=== PATIENT | female | born 1985 | race Caucasian/White ===

== ENCOUNTER 2017-01-19 05:31 | Day surgery (SDC) | payer OTHER ==
--- NOTE | 2017-01-13 14:50 | GHP ---
[f rep st] HISTORY AND PHYSICAL HISTORY OF PRESENT ILLNESS: Patient is a 2, para 0, 0, A1, living 0, 31-year-old who came in to [facility] at 8 weeks 4 days on 01/12/2017 for her new OB, had previously had a viability and dating on 2016 that showed a positive low heart rate of 117, size less than dates by 3 days. Was again ultrasound on January 12, where there was no visible heart rate and size less than dates by 9 days. The yolk sac appeared collapsed on . Embryo was seen, number was 1, gestational sac was seen, but as previously stated, no heart rate. Blood type was done, patient is O positive, so RhoGAM was not given. Patient has decided to proceed with a D and C as plan of care. PAST MEDICAL HISTORY: History of a UTI x1 in the past year, history of 1-3 per year. Varicella is positive. Tdap was received in 2014. The patient has been rubella immunized. Previous history of slight constipation. PAST SURGICAL HISTORY: Fractured right arm at the age of 18 secondary to fall, had multiple screws placed because of that. GYNECOLOGICAL HISTORY: History of OCP use. 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 Abnormal Pap 4-5 years ago with a colpo, re-Pap was negative. SOCIAL HISTORY: Patient is to [place]. Denies tobacco use. Denies drug use. MEDICATIONS: Patient has been taking vitamins with DHA. ALLERGIES: Patient is not allergic to any medications. PAST HISTORY: Spontaneous SAB, no D and C was necessary, in 2014. REVIEW OF SYSTEMS: Time 9 is benign. FAMILY HISTORY: Noncontributory. PHYSICAL ASSESSMENT: Patient was awake, alert, oriented x3. Lungs are clear bilaterally. Bowel sounds are positive in all 4 quadrants. DTRs are 1+ bilaterally with no clonus. Homans sign was negative bilaterally. In the office, alternatives for patient plan of care were discussed. Risks, benefits and alternatives were discussed at length. The patient decided on a D and C, discussed risks, benefits and alternatives of a D and C, plan was decided that she would schedule and proceed with a D and C for Tuesday, January 19. PLAN OF CARE: 1. positive. 2. Proceed with D and C for a missed AB. The patient verbalized understanding of the risks, the benefits, and the alternatives. /[id number]/MODL MTDD
[2017-01-19] MEDS ORDERED: LR 1,000 ML IV ONE (06:15)
[2017-01-19] MEDS ORDERED: DOXYCYCLINE HYCLATE 100 MG CAP/TAB PO ONE ×2 (06:15→09:34)
[2017-01-19] MEDS ORDERED: MIDAZOLAM 2 MG/2 ML VIAL ONE (07:17)
--- NOTE | 2017-01-19 07:27 | PDANEPAE ---
ANE History of Present Illness Missed Ab. ANE Past Medical History Past Medical History: General anesthesia for arm surgery. - Cardiovascular History Hx Hypertension: No Hx Arrhythmias: No Hx Chest Pain: No Hx Coronary Artery / Peripheral Vascular Disease: No Hx CHF / Valvular Disease: No Hx Palpitations: No - Pulmonary History Hx COPD: No Hx Asthma/Reactive Airway Disease: No Hx Recent Upper Respiratory Infection: No Hx Oxygen in Use at Home: No Hx Sleep Apnea: No Sleep Apnea Screening Result - Last Documented: Negative - Endocrine History Hx Diabetes: No Hypothyroid: No Hyperthyroid: No Obesity: no - Chronic Pain History Chronic Pain: No - Surgical History Prior Surgeries: General anesthesia for ORIF right arm. ANE Review of Systems Review of systems is: negative Review of Systems: - Exercise capacity Exercise capacity: >=4 METS ANE Patient History - Allergies Allergies/Adverse Reactions: No Known Allergies Allergy (Unverified 01/19/17 06:05) - NPO status NPO Status: no food or drink >8 hours NPO Since - Liquids (Date): 01/18/17 NPO Since - Liquids (Time): 20:30 NPO Since - Solids (Date): 01/18/17 NPO Since - Solids (Time): 20:30 - Anes Hx Anes Hx: no prior problems - Smoking Hx Smoking Status: Never smoked - Alcohol Use Alcohol Use: Rarely - Family Anes Hx Family Anes Hx: neg - N/A ANE Labs/Vital Signs - Vital Signs Blood Pressure: 105/70 Heart Rate: 76 Respiratory Rate: 16 O2 Sat (%): 97 Height: 160.02 cm Weight: 65.771 kg ANE Physical Exam - Airway Neck exam: FROM Mallampati Score: Class 1 Mouth exam: normal dental/mouth exam - Pulmonary Pulmonary: no respiratory distress - Cardiovascular Cardiovascular: regular rate and rhythym - ASA Status ASA Status: I ANE Anesthesia Plan Anesthesia Plan: GA with mask
[2017-01-19] MEDS ORDERED: fentaNYL 100 MCG/2 ML INJ ONE (07:42)
[2017-01-19] MEDS ORDERED: PROPOFOL/EMULSION 500 MG/50 ML BOTTLE IV ONE (07:42)
[2017-01-19] MEDS ORDERED: LIDOCAINE 2% 5 ML SDV ONE (07:45)
[2017-01-19] MEDS ORDERED: ONDANSETRON 4 MG/2 ML VIAL ONE (07:45)
[2017-01-19] MEDS ORDERED: DEXAMETHASONE 4 MG/ML VIAL ONE ×2 (07:45)
--- NOTE | 2017-01-19 08:24 | PDHPUP ---
History & Physical Update H&P update statement: This history and physical update is based on an assessment of the patient which was completed after admission or registration (within 24 hours), but prior to the surgery/procedure.
[2017-01-19] MEDS ORDERED: KETOROLAC 30 MG/1 ML SDV ONE (09:02)
[2017-01-19] MEDS ORDERED: fentaNYL 100 MCG/2 ML INJ IVP PRN (09:27)
[2017-01-19] MEDS ORDERED: HYDROCODONE/APAP 5/325 TAB PO PRN (09:27)
[2017-01-19] MEDS ORDERED: NALOXONE HCL 0.4 MG/ML INJ IVP PRN (09:27)
--- NOTE | 2017-01-19 09:28 | POSTANESTH ---
Post Anesthetic Evaluation Cardiovascular Status: Normal, Stable, Similar to Pre-Op Cond Respiratory Status: Normal, Stable, Similar to Pre-op Cond. Level of Consciousness/Mental Status: Can Participate in Eval, Mildly Sleepy, Arousable Pain Control: Adequate, Prn Tx Ordered Nausea/Vomiting Control: Adequate, Prn Tx Ordered Complications Possibly Related to Anesthesia: None Noted
--- NOTE | 2017-01-19 09:40 | OBPROC ---
OBG Outpatient Procedure Note - History : 2 Term: 0 : 0 Para: 0 Spontaneous Abortions: 1 Induced Abortions: 0 Abortions: 0 Ectopics: 0 Livin - Procedure Info Date of Operation: 01/19/17 Pre-op Diagnoses: MAB at 8 wks Post-op Diagnoses: same Indication: U/S with 8 wk pole, no FCA, no bld or cramps Procedure: Dilation & Curettage Performing Provider: Naye Guallpa Anesthesiologist: Juan Galvan Specimen(s)/Path: Products of Conception Procedural EBL: < 50 ml Procedural Note: procedure note dictated ICD10 Worksheet Patient Problems: Problems Problem Status Onset S/P dilatation and curettage Acute
[2017-01-19 10:30] VITALS: TEMP 98.1
[2017-01-19 10:38] VITALS: BP 103/61; RESP 18; O2SAT 95
--- NOTE | 2017-01-19 12:39 | GOP ---
[f rep st] OPERATIVE REPORT DATE OF OPERATION: 01/19/2017 SURGEON: Naye Guallpa MD ANESTHESIA: IV and mask general anesthesia. ANESTHESIOLOGIST: Conrad Galvan MD PREOPERATIVE DIAGNOSIS: Missed at 8 weeks. POSTOPERATIVE DIAGNOSIS: Missed at 8 weeks. PROCEDURE PERFORMED: Dilatation and curettage. FINDINGS: ESTIMATED BLOOD LOSS: Less than 50 cc. INDICATIONS: The patient is a 31-year-old G2, A1, who is at 8 weeks and 4 days by her last menstrual period. The patient had an initial visit on January 05, at which time she had size equals dates on pole size. However, there was a slightly low heart rate of 117 beats per minute. She had a followup ultrasound on 01/12 at which time there was a missed AB with now size less than dates by 9 days. The patient was given options as to awaiting a spontaneous AB, proceeding with Cytotec to help induce an AB versus proceeding with D and C. The patient desired to proceed with definitive managem ent of a D and C, as her last spontaneous miscarriage was very traumatic and painful. The patient wa s counseled as to the risks and benefits and the consent form signed. Maternal blood type is O posit kimi. Patient was given preoperative antibiotics of doxycycline. Patient urinated prior to coming to the operating room and has on SCDs for DVT prophylaxis. DESCRIPTION OF PROCEDURE: The patient was taken to the operating room, where following satisfactory IV and mask general anesthesia, the patient was placed in dorsal lithotomy position typical for vagin al procedures. The patient's perineum and vagina were prepped and the patient draped in usual steril e manner. A sterile speculum was placed within the vagina and an atraumatic grasper was placed on th e anterior lip of the cervix. Gentle traction was applied on the tenaculum to straighten the uterus. The cervix was slowly dilated with Hegar dilators up to 8.5. A #8 tip on the suction machine was u sed to perform the suction curettage. Several passes with the suction were performed and moderate am ount of tissue obtained. Following the suction portion, a sharp curetting was performed carefully on the anterior wall. There was minimal additional tissue obtained. There was good uterine cry felt t hroughout the cavity after the sharp curetting. One additional pass with the suction tip was used to empty blood from the uterus and ensure no continued tissue. There was minimal bleeding from the edi demetris. The atraumatic grasper was taken off the anterior lip of the cervix and there was no bleeding. Ultrasound was performed after the procedure and there was no residual gestational sac in the endome trial cavity. The patient tolerated the procedure well. The patient was cleaned off and taken out o f the operating room in stable condition. The patient was awoken normally. There were no complicati ons. IV FLUIDS: 1000 cc. /[id number]/MODL
[2017-01-19 12:41] VITALS: PULSE 73
== END 2017-01-19 12:48 | disposition home or self-care (01) ==
LOC: FOBOP 05:31
PROVIDERS: ATTEND Obstetrics & Gynecology
PROC: 10D17ZZ Extraction of Products of Conception, Retained, Via Natural or Artificial Opening (ICD-10-PCS; principal; 2017-01-19)
DX: O02.1 Missed abortion (principal); Z3A.08 8 weeks gestation of pregnancy
CPT/HCPCS: J1100; J1885; J2250; J2405; J2704; J3010

== ENCOUNTER → 2018-05-01 | Outpatient (CLI) | payer OTHER | LOC: FIMAGING 09:29 | PROVIDERS: ATTEND Obstetrics & Gynecology | DX: O09.523 Supervision of elderly multigravida, third trimester (principal); Z3A.30 30 weeks gestation of pregnancy ==

== ENCOUNTER → 2018-05-15 | Outpatient (CLI) | payer OTHER | LOC: FIMAGING 12:16 | PROVIDERS: ATTEND Obstetrics & Gynecology | DX: O36.5930 Maternal care for other known or suspected poor fetal growth, third trimester, not applicable or unspecified (principal); Z3A.32 32 weeks gestation of pregnancy ==

== ENCOUNTER → 2018-05-29 | Outpatient (CLI) | payer OTHER | LOC: FIMAGING 08:16 | PROVIDERS: ATTEND Obstetrics & Gynecology | DX: O36.5930 Maternal care for other known or suspected poor fetal growth, third trimester, not applicable or unspecified (principal); Z3A.30 30 weeks gestation of pregnancy ==

== ENCOUNTER → 2018-06-20 | Outpatient (CLI) | payer OTHER | LOC: FIMAGING 14:06 | PROVIDERS: ATTEND Obstetrics & Gynecology | DX: O35.8XX0 Maternal care for other (suspected) fetal abnormality and damage, not applicable or unspecified (principal); Z3A.37 37 weeks gestation of pregnancy ==

== ENCOUNTER 2018-07-09 05:31 | Inpatient (IN) | payer OTHER ==
[2018-07-09] MEDS ORDERED: IBUPROFEN 600 MG TAB PO PRN (06:31)
[2018-07-09] MEDS ORDERED: LR 1,000 ML IV PRN (06:31)
[2018-07-09] MEDS ORDERED: EPSOM SALT 454 GM TP PRN (06:31)
[2018-07-09] MEDS ORDERED: MISOPROSTOL 200 MCG TAB PO PRN (06:31)
[2018-07-09] MEDS ORDERED: OLIVE OIL 118 ML BTL MISC PRN (06:31)
[2018-07-09] MEDS ORDERED: LIDOCAINE 1% 300 MG/30 ML SDV SC PRN (06:31)
[2018-07-09] MEDS ORDERED: AMMONIA AROMATIC 1 EACH AMP IH PRN (06:31)
[2018-07-09] MEDS ORDERED: OXYTOCIN/RINGERS LACTATE 1,000 ML IV PRN (06:31)
[2018-07-09] MEDS ORDERED: TERBUTALINE SULFATE 1 MG/ML VIAL IV PRN (06:31)
--- NOTE | 2018-07-09 07:01 | PDGENHP ---
History and Physical - Chief Complaint SROM, early labor - History of Present Illness 32 yo at 40w0d by ANGELES of 07/09/18 presented this AM with SROM at 0400. Amnisure positive here on admission. GBS negative. Had been having some mild cramping last night, and has maybe noticed a slight change in ctx's since her water breaking this AM. Was 1-2cm in clinic last week. This complicated by IUGR that was diagnosed at 20 wk anatomy scan and then followed by MFM w serial growths and dopplers. Actually ended up "resolving" such that their most recent visit was at 36w4d and EFW had recovered to 13% with normal fluid and dopplers. They felt like she was safe to stop US screening, but still delivery by ANGELES due to suspected underlying placental insufficiency. She also has h/o LEEP for CIN3 in 2018 - normal CLUS at 16wks. H/o frequent UTI 's. Had complete previa that resolved. labs: O pos Antibody neg RPR NR Hep B neg Rubella immune HIV neg Toxo nonimmune Pap 09/2017 (after LEEP) - NIL VZV immune GBS NEG History Information - Allergies/Home Medication List Allergies/Adverse Reactions: No Known Allergies Allergy (Unverified 01/19/17 06:05) I have personally reviewed and updated: family history, medical history, social history, surgical history Past Medical History: Cervical dysplasia, frequent UTI - Surgical History Additional surgical history: D&C x 2, R arm fx and fix, wisdom teeth - Social History Smoking Status: Never smoked Review of Systems Review of Systems: ROS: 10pt was reviewed & negative except for what was stated in HPI & below Physical Exam Physical Exam: Constitutional: no apparent distress, appears nourished, not in pain Eyes: PERRL Gastrointestinal: soft, non-tender abdomen, other (Longitudinal lie, vertex by SCE per RN) Skin: warm, normal color Lab Data & Imaging Review 07/09/18 06:45 Membrane Rupture POSITIVE (NEGATIVE) H 07/09/18 05:30 Imaging Review: FHR 130s, mod jerry, accels present, no decels. [place]: Irreg Assessment & Plan Assessment: 32 yo at 40w0d presents with SROM clear fluid, not in labor yet. - Discussed will wait 4-8 hrs for spontaneous labor and augment with Pit if nothing happens by Noon. - GBS neg. - Epidural when desired, will try other methods first. - CEFM due to IUGR. - Rh pos, Rubella immune. JM
[2018-07-09 07:22] LABS: PLATELET COUNT 228 10^3/uL (150-400)
[2018-07-09] MEDS ORDERED: OLIVE OIL 118 ML BTL MISC ONE (07:35)
[2018-07-09] MEDS ORDERED: LIDOCAINE 1% 300 MG/30 ML SDV ONE (07:35)
[2018-07-09] MEDS ORDERED: AMMONIA AROMATIC 1 EACH AMP IH ONE (07:35)
[2018-07-09] MEDS ORDERED: TERBUTALINE SULFATE 1 MG/ML VIAL ONE (07:36)
[2018-07-09] MEDS ORDERED: MISOPROSTOL 200 MCG TAB ONE (07:36)
[2018-07-09] MEDS ORDERED: OXYTOCIN 10 UNIT/ML VIAL ONE (07:36)
--- NOTE | 2018-07-09 14:37 | OBPROG ---
Labor Progress Note Assessment/Plan: Assessment: 32 y/o @ 40 weeks with SROM in active labor Plan: Continue expectant management RN examined pt and SVE: 7-8/100/+1 Pt coping well with ctx's FHTs - Cat I tracing, reassuring Pt remains afebrile Will reassess in a few hours Anticipate 07/09/18 14:43 Subjective/Intrapartum Course: 07/09/18 14:46 Pt is coping well with her ctx's, she is breathing through them and getting ready to get back in the tub Objective: 07/09/18 06:45 Patient ABO/Rh O POSITIVE 07/09/18 06:45 - SVE Dilation (cm): 7 (7-8) Effacement (%): 100 Station: +1 Membranes: SROM Amniotic Fluid Color: Clear - Contraction Pattern Assessment Current Contraction Pattern: Regular (q2-3 min) - FHR Assessment Ramirez FHR (bpm): 135 FHR Pattern Variability: Moderate FHR Category: 1 - AP Antepartum Course: 07/09/18 14:46 h/o LEEP secondary to TIMOTEO III with normal CL at 15 weeks; complete previa that resolved at 20 weeks and became low lying and was rechecked at 28 weeks and resolved, 2.8 cm away from os; IUGR diagnosed at 20 weeks, followed by MFM with dopplers and resolved with most recent u/s at 36 4/7 wks with EFW 13%, MFM did recommend delivery by due date secondary to placental insufficiency. Oxytocin Orders Assessment - Pre-Induction/Augmentation Assessment Gestational Age: 40 week(s) and 0 day(s) ICD10 Worksheet Patient Problems: Problems Problem Status Onset Normal labor Acute Leakage of amniotic fluid Acute
[2018-07-09] MEDS ORDERED: HYDROCORTISONE 0.5% CREAM TP PRN (19:40)
[2018-07-09] MEDS ORDERED: SIMETHICONE 80 MG TAB CHEW PO PRN (19:40)
[2018-07-09] MEDS ORDERED: ACETAMINOPHEN 325 MG TAB PO PRN (19:40)
--- NOTE | 2018-07-09 19:48 | OBDEL ---
Info Type: Vaginal Presentation at Delivery: Vertex (JOSÉ) L&D Analgesia/Anesthesia Type: None GBS+: No - Hospital Course Intrapartum: 07/09/18 14:46 Pt is coping well with her ctx's, she is breathing through them and getting ready to get back in the tub Indications for Delivery: SROM Vaginal Delivery - Delivery Provider Delivery Physician/CNM: Vicky Sims - Labor and Delivery Onset of Contractions Date: 07/09/18 Onset of Contractions Time: 04:00 Onset of Contractions Type: Spontaneous Rupture of Membranes Date: 07/09/18 Rupture of Membranes Time: 04:00 Rupture of Membranes Type: Spontaneous Amniotic Fluid Color: Clear Dilation Complete Date: 07/09/18 Dilation Complete Time: 17:45 Placenta Delivery Date: 07/09/18 Placenta Delivery Time: 19:24 Total Hours of Labor: 15 Episiotomy: Midline Laceration: Other (Specify) (No extension of midline episiotomy) Repair: 3-0, Vicryl Vaginal Sponge Count Correct: Yes Vaginal Needle Count Correct: Yes Vaginal Sweep Performed: Yes EBL: 300cc Delivery Events: None Delivery Comment: A viable male infant born at 1918 over midline episiotomy, after injection of plain Lidocaine, in JOSÉ presentation with 8 and 9 Apgars. to maternal abdomen. Delayed cord clamping x 60 sec. Cord then clamped x 2 and cut. Cord gases and bloods obtained. Placenta delivered spontaneously intact with 3-vc. Vagina and perineum inspected and no extensions noted. Episiotomy repaired with 3-0 Vicryl under local anesthetic. Bimanual performed with expulsion of very small clots. Fundus firm and noted below umbilicus. Minimal bleeding noted. No complications. Pt marquise well. Mom and baby both doing well. Data ANGELES: 07/09/18 Gestational Age: 40 week(s) and 0 day(s) Ramirez Delivery Date: 07/09/18 Delivery Time: 19:16 Sex of : Male ("Luis") Score (1 Min): 8 Score (5 Min): 9 ICD10 Worksheet Patient Problems: Problems Problem Status Onset Leakage of amniotic fluid Acute Normal labor Acute (spontaneous vaginal delivery) Acute - ICD10 Problem Qualifiers (1) (spontaneous vaginal delivery)
[2018-07-09] MEDS: DOCUSATE SODIUM 100 MG CAP PO SCH (20:59)
[2018-07-10] MEDS: IBUPROFEN 600 MG TAB PO PRN ×2 (07:55→16:19)
[2018-07-10] MEDS: DOCUSATE SODIUM 100 MG CAP PO SCH ×2 (07:55→20:00)
--- NOTE | 2018-07-10 10:34 | OBPP ---
Progress Note Assessment/Plan: Assessment: 32 y/o G3 now P1 s/p PPD #1 - pt is stable Plan: Continue routine pp care Encourage ambulation support prn Plan for d/c home in am 07/1107/10/18 10:30 Subjective/ Course: 07/10/18 10:31 Pt seen and examined. Doing well with no complaints. Minimal cramping, relief with po meds. Mod lochia. Pt is OOB, marquise regular diet, voiding without difficulty and passing flatus. No BM yet. Still working on BF-she and baby were tired last night. Objective: 07/09/18 06:45 Patient ABO/Rh O POSITIVE 07/09/18 06:45 Temp Pulse Resp BP Pulse Ox 36.8 C 83 15 110/71 93 07/10/18 08:00 07/10/18 08:00 07/10/18 08:00 07/10/18 08:00 07/10/18 08:00 Uterine Position/Fundal Height: Umbilicus -2 Uterine Tone: Firm Physical Exam - Physical Exam General Appearance: WD/WN, alert, no apparent distress Respiratory: lungs clear, normal breath sounds Cardiac/Chest: regular rate, rhythm Abdomen: normal bowel sounds, non-tender, soft, flatus (+) Extremities: non-tender, normal inspection Skin: normal color, warm/dry Neuro/Psych: alert, normal mood/affect, oriented x 3
[2018-07-11] MEDS: IBUPROFEN 600 MG TAB PO PRN (01:18)
[2018-07-11 08:51] VITALS: BP 99/69
--- NOTE | 2018-07-11 09:33 | OBPP ---
Progress Note Assessment/Plan: Assessment: 32 y/o G3 now P1 s/p PPD #2 - pt is stable Plan: Continue routine pp care Will work with prior to discharge home Desires circ for baby boy Instructions reviewed with pt No Rx given-continue Ibu/Tylenol prn Cont PNV and colace Pelvic rest RTC in 3 weeks for a mood check and 6 weeks for a pp check 07/11/18 09:30 Subjective/ Course: 07/10/18 10:31 Pt seen and examined. Doing well with no complaints. Minimal cramping, relief with po meds. Mod lochia. Pt is OOB, marquise regular diet, voiding without difficulty and passing flatus. No BM yet. Still working on BF-she and baby were tired last night. 07/11/18 09:31 Pt seen and examined. She is sitting in rocking chair and frustrated with . Minimal cramping. Mod lochia. Pt is OOB, marquise regular diet, voiding without difficulty and passing flatus. Still no BM. Objective: 07/09/18 06:45 Patient ABO/Rh O POSITIVE 07/09/18 06:45 Temp Pulse Resp BP Pulse Ox 36.4 C 91 16 99/69 L 96 07/11/18 08:48 07/11/18 08:48 07/11/18 08:48 07/11/18 08:48 07/11/18 08:48 Uterine Position/Fundal Height: Umbilicus -2 Uterine Tone: Firm Physical Exam - Physical Exam General Appearance: WD/WN, alert, no apparent distress Respiratory: lungs clear, normal breath sounds Cardiac/Chest: regular rate, rhythm Abdomen: normal bowel sounds, non-tender, soft, flatus (+) Extremities: non-tender, normal inspection Skin: normal color, warm/dry Neuro/Psych: alert, normal mood/affect, oriented x 3
--- NOTE | 2018-07-11 09:33 | OBGCSDC ---
General Delivery Information - General Info : 3 Para: 1 Abortions: 0 Type: Vaginal L&D Analgesia/Anesthesia Type: None Admission Date: 07/09/18 Labs: Patient ABO/Rh O POSITIVE 07/09/18 06:45 Hct 39.0 % (38.0-47.0) 07/09/18 06:45 Temp Pulse Resp BP Pulse Ox 07/11/18 08:48 36.4 C 91 16 99/69 L 96 07/10/18 21:10 36.3 C 81 16 90/59 L 95 07/10/18 11:45 36.2 C 81 16 96/62 L 95 - Hospital Course Antepartum: 07/09/18 14:46 h/o LEEP secondary to TIMOTEO III with normal CL at 15 weeks; complete previa that resolved at 20 weeks and became low lying and was rechecked at 28 weeks and resolved, 2.8 cm away from os; IUGR diagnosed at 20 weeks, followed by MFM with dopplers and resolved with most recent u/s at 36 4/7 wks with EFW 13%, MFM did recommend delivery by due date secondary to placental insufficiency. Intrapartum: 07/09/18 14:46 Pt is coping well with her ctx's, she is breathing through them and getting ready to get back in the tub : 07/10/18 10:31 Pt seen and examined. Doing well with no complaints. Minimal cramping, relief with po meds. Mod lochia. Pt is OOB, marquise regular diet, voiding without difficulty and passing flatus. No BM yet. Still working on BF-she and baby were tired last night. 07/11/18 09:31 Pt seen and examined. She is sitting in rocking chair and frustrated with . Minimal cramping. Mod lochia. Pt is OOB, marquise regular diet, voiding without difficulty and passing flatus. Still no BM. Vaginal - Delivery Provider Delivery Physician/CNM: Vicky Sims - Diagnosis Labor: Spontaneous Rupture of Membranes Type: Spontaneous Amniotic Fluid Color: Clear Episiotomy: Midline Laceration: Other (Specify) (No extension of midline episiotomy) Repair: 3-0, Vicryl Delivery Events: None - Delivery EBL: 300cc [place] Data ANGELES: 05/26/19 Gestational Age: 40 week(s) and 2 day(s) Ramirez Delivery Date: 07/09/18 Delivery Time: 19:16 Sex of : Male [place] Weight (gm): 3330 g Score (1 Min): 8 Score (5 Min): 9 Discharge Information - Discharge Information Condition: Good Instruction/Follow Up: Four Weeks (3 weeks for mood check with [facility]), Six Weeks (for routine check)
[2018-07-11] MEDS: DOCUSATE SODIUM 100 MG CAP PO SCH (11:04)
== END 2018-07-11 13:30 | disposition home or self-care (01) | DRG 807 ==
LOC: FLD 05:31 → OBSVTOIN 06:35 → FOB 21:43
PROVIDERS: ADMIT Obstetrics & Gynecology; ATTEND Obstetrics & Gynecology
PROC: 10E0XZZ Delivery of Products of Conception, External Approach (ICD-10-PCS; principal; 2018-07-09)
DX: O36.5130 Maternal care for known or suspected placental insufficiency, third trimester, not applicable or unspecified (principal); Z37.0 Single live birth; Z3A.40 40 weeks gestation of pregnancy
CPT/HCPCS: J2590; J3105

== ENCOUNTER → 2018-07-13 | Outpatient (CLI) | payer OTHER | LOC: FLACT 15:15 ==